=== PATIENT | female | born 1970 | race American Indian/Alaskan Native ===

== ENCOUNTER 2021-04-12 16:27 | Emergency (ER) | payer MEDICARE ==
[2021-04-12 18:13] VITALS: BP 133/96
[2021-04-12] MEDS ORDERED: DOXYCYCLINE 100 MG CAP PO ONE (23:03)
[2021-04-12] MEDS ORDERED: metroNIDAZOLE 500 MG TAB PO ONE (23:03)
[2021-04-12] MEDS ORDERED: LIDOCAINE-MPF (1%) 10 MG/1 ML VIAL 5 ML INFILTRATI ONE (23:03)
--- NOTE | 2021-04-12 23:08 | Emergency Department Report ---
ED General Adult HPI - General Chief complaint: Urogenital-Female Stated complaint: WOMEN PROBLEMS Source: patient Mode of arrival: Ambulatory Limitations: No Limitations - History of Present Illness Initial comments: 50-year-old female patient presents to the emergency department requesting STD treatment. Patient states she has been experiencing malodorous vaginal discharge since last week after a sexual encounter. She tested positive for chlamydia and trichomonas while she was at another healthcare facility. However, she was discharged at healthcare facility before she could receive treatment. She is currently enrolled in a rehabilitation program and is not able to go to the local health department for treatment. Denies fever, chills, abdominal pain, pelvic pain, vaginal bleeding. Denies all other complaints at this time. - Related Data Previous Rx's Medication Instructions Recorded Last Taken Type Doxycycline Hyclate 100 mg PO BID 7 Days tablet. 04/12/21 Unknown Rx metroNIDAZOLE [Flagyl] 500 mg PO Q12HR 7 Days tab 04/12/21 Unknown Rx Allergies Allergy/AdvReac Type Severity Reaction Status Date / Time No Known Allergies Allergy Unverified 04/12/21 18:09 ED Review of Systems ROS: Stated complaint: WOMEN PROBLEMS Other details as noted in HPI Other: GENERAL: Negative for fever. CARDIOVASCULAR: Negative for chest pain. PULMONARY: Negative for shortness of breath. GASTROINTESTINAL: Negative for abdominal pain. MUSCULOSKELETAL: Negative for back pain. NEUROLOGICAL: Negative for headache. INTEGUMENTARY: Negative for rash. ED Past Medical Hx - Past Medical History Previous Medical History?: Yes Hx Hypertension: Yes - Surgical History Past Surgical History?: Yes Hx Appendectomy: Yes - Medications Home Medications: Home Medications Medication Instructions Recorded Confirmed Last Taken Type Doxycycline Hyclate 100 mg PO BID 7 Days tablet. 04/12/21 Unknown Rx metroNIDAZOLE [Flagyl] 500 mg PO Q12HR 7 Days tab 04/12/21 Unknown Rx ED Physical Exam - General Limitations: No Limitations - Other Other exam information: General: Awake, appropriately interactive, no acute distress. Neck: Supple. Full range of motion intact. Cardiovascular: Normal peripheral perfusion. Pulmonary: No respiratory distress. Patient is speaking normally without use of accessory muscles. Skin: No apparent rashes or lesions. Neurological: No facial asymmetry. Speech is clear. Follows commands. Patient is alert and oriented. Musculoskeletal: Moves all four extremities spontaneously with normal range of motion. Psych: Cooperative. Appropriate mood and affect. ED Course Vital Signs 04/12/21 18:13 Temperature 98.2 F Pulse Rate 77 Respiratory 18 Rate Blood Pressure 133/96 O2 Sat by Pulse 100 Oximetry ED Medical Decision Making - Medical Decision Making Patient presents to the emergency department requesting STD treatment. She has already tested positive for trichomonas and chlamydia on an outpatient basis. No fever, abdominal pain, or pelvic pain to suggest pelvic inflammatory disease, tubo-ovarian abscess, salpingitis, or other acute process warranting further diagnostic work-up on an emergent basis at this time. STD testing is currently unavailable at this facility. Patient will be treated with Rocephin, Doxycycline, and Flagyl per current CDC guidelines and referred to sales warehouse driver for close outpatient follow-up. Patient expressed understanding and is agreeable to plan of care. Disease transmission precautions discussed. Strict return precautions provided. BILLING/CODING: This patient encounter does not represent a certified medical emergency. Critical care attestation.: If time is entered above; I have spent that time in minutes in the direct care of this critically ill patient, excluding procedure time. ED Disposition Clinical Impression: History of chlamydia, History of trichomonal vaginitis Disposition: DC-01 TO HOME OR SELFCARE Is pt being admited?: No Does the pt Need Aspirin: No Condition: Stable Instructions: Safe Sex Additional Instructions: Take Flagyl and Doxycycline with food as directed. Do not consume alcohol while taking Flagyl. Avoid prolonged sun exposure while taking Doxycycline. Increase your dietary intake of probiotic rich foods while taking his medications. Please use barrier protection when engaging in sexual intercourse. Follow-up with your primary care provider and/or sales warehouse driver this week. Call tomorrow to schedule an appointment. See referral information below. Return to the emergency department immediately for new or worsening symptoms. Prescriptions: Doxycycline Hyclate 100 mg PO BID 7 Days tablet. metroNIDAZOLE [Flagyl] 500 mg PO Q12HR 7 Days tab Referrals: GABBY JACOBSON MD [Staff Physician] - 3-5 Days Time of Disposition: 23:10
== END 2021-04-13 00:35 | disposition home or self-care (01) ==
LOC: ED 16:27
DX: A74.9 Chlamydial infection, unspecified (principal); A59.01 Trichomonal vulvovaginitis; I10 Essential (primary) hypertension
CPT/HCPCS: 96372; 99282; J0696

== ENCOUNTER 2021-04-24 12:56 | Emergency (ER) | payer MEDICARE ==
[2021-04-25 05:26] VITALS: BP 149/83
== END 2021-04-25 05:27 | disposition home or self-care (01) ==
LOC: ED 12:56
DX: N39.0 Urinary tract infection, site not specified (principal); R07.9 Chest pain, unspecified; I10 Essential (primary) hypertension
CPT/HCPCS: 36415; 71046; 80053; 81001; 84484; 85007; 85025; 85610; 85730; 93005; 99284